=== PATIENT | female | born 1975 | race African-American/Black ===

== ENCOUNTER 2016-11-15 18:22 | Emergency (ER) | payer OTHER ==
[~2016-11-15] VITALS: Ht 162.6 cm; Wt 88.5 kg
[2016-11-15] MEDS ORDERED: HYDR4TAB4 PO (19:13)
[2016-11-15] MEDS ORDERED: ONDANSETRON 4 MG/2 ML VIAL IV ONE (20:15)
[2016-11-15] MEDS ORDERED: HYDROMORPHONE 1 MG/1 ML DISP.SYRIN IV ONE ×2 (20:15→22:45)
[2016-11-15] MEDS ORDERED: IV NORMAL SALINE 1000 ML BAG IV ONE (20:15)
[2016-11-15 20:29] LABS: BASOPHILS % (AUTO) 0.4 % (0.0-2.0); EOSINOPHILS % (AUTO) 0.4 % (0.0-7.0); HEMATOCRIT 33.5 % (37-47); HEMOGLOBIN 10.5 G/DL (12.0-16.0); LYMPHOCYTES # (AUTO) 1.7 K/UL (0.8-4.8); LYMPHOCYTES % (AUTO) 38.1 % (20.5-51.5); MEAN CORPUSCULAR HGB CONC 31 g/dL (32.0-37.0); MONOCYTES # (AUTO) 0.3 K/UL (0.1-1.30); MONOCYTES % (AUTO) 6.9 % (0.0-11.0); NEUTROPHILS # (AUTO) 2.4 K/UL (1.8-8.9); NEUTROPHILS % (AUTO) 54.2 % (38.5-71.5); PLATELET COUNT (AUTO) 220 K/UL (150-450); RED BLOOD CELL COUNT(AUTO) 4.79 MIL/UL (4.2-5.4); WHITE BLOOD COUNT (AUTO) 4.4 K/UL (4.0-11.2)
[2016-11-15] MEDS ORDERED: ONDANSETRON 4 MG/2 ML VIAL ONE ×2 (20:38→23:00)
[2016-11-15] MEDS ORDERED: HYDROMORPHONE 2 MG/1 ML DISP.SYRIN ONE ×2 (20:38→23:00)
[2016-11-15 20:40] LABS: CREATININE 0.8 mg/dL (0.6-1.3); POTASSIUM 3.8 mmol/L (3.5-5.1)
[2016-11-15 20:46] LABS: EOSINOPHILS % (MANUAL) 1 % (0-8); LYMPHOCYTES % (MANUAL) 37 % (20-40); MONOCYTES % (MANUAL) 7 % (2-10); NEUTROPHILS % (MANUAL) 55 % (42-75)
[2016-11-15 20:53] LABS: BILIRUBIN,DIRECT 0.2 mg/dL (0.0-0.2); BILIRUBIN,TOTAL 0.4 mg/dL (0.2-1.0); TOTAL PROTEIN, SERUM 7.8 g/dL (6.4-8.2)
--- NOTE | 2016-11-15 22:17 | NUR ---
TAE spoke with patient regarding test results and informed her of the plan for discharge. The patient is presenting photos on her phone of a previous hospital visit in an attempt to justify an admission at this time. Multiple staff members attempted to explain the results of the tests and to inform her of the plan for discharge, each of which met by argument from the patient. Patient states that she "can't walk" despite negative lab results and examination. Nursing Mining Analyst notified.
--- NOTE | 2016-11-15 22:35 | NUR ---
Patient observed moving around in bed, changing positions of her legs. At one point the patient was observed to hang her legs off the side of the bed, while distracted, indicating full range of motion without pain. TAE and Nursing Anesthesia Attending aware.
[2016-11-15] MEDS ORDERED: ONDANSETRON IV *ER 4 MG/2 ML VIAL IV ONE (22:45)
--- NOTE | 2016-11-15 23:07 | NUR ---
Patient discharged to home in stable conditon. Written and verbal after care instructions given. Patient verbalizes understanding of instructions.
[2016-11-15 23:08] VITALS: BP 122/74
== END 2016-11-15 23:25 | disposition home or self-care (01) ==
LOC: ER 18:23
DX: D57.00 Hb-SS disease with crisis, unspecified (principal); M79.7 Fibromyalgia
CPT/HCPCS: 36415; 70030-TC; 71010; 83605; 83690; 85025; 87040; 93005; A4663; J1170; J2405; J7030